=== PATIENT | female | born 1995 | race African-American/Black ===

== ENCOUNTER 2018-10-30 17:32 | Inpatient (IN) | payer OTHER ==
[~2018-10-30] VITALS: Ht 149.9 cm; Wt 81.9 kg
[2018-10-30 17:58] VITALS: BP 139/87
[2018-10-30] MEDS ORDERED: LR 1,000 ML IV SCH (18:58)
[2018-10-30] MEDS ORDERED: LACTATED RINGER'S 1000 ML IV ONE (19:00)
[2018-10-30] MEDS ORDERED: OXYTOCIN DRIP 30 UNITS in APPROPRIATE DILUENT 1 EA IV SCH (19:15)
[2018-10-30 19:48] LABS: HEMATOCRIT 30.8 % (36.0-47.0); HEMOGLOBIN 9.8 g/dl (12.0-15.5); MEAN CORPUSCULAR HEMOGLOBIN 26.9 pg (27.0-33.0); MEAN CORPUSCULAR HGB CONC 31.8 g/dl (32.0-36.5); MEAN CORPUSCULAR VOLUME 84.6 fl (80.0-96.0); PLATELET COUNT, AUTOMATED 170 10^3/uL (150-450); RED BLOOD COUNT 3.64 10^6/uL (4.00-5.40); WHITE BLOOD COUNT 6.3 10^3/uL (4.0-10.0)
[2018-10-30] MEDS ORDERED: FENTANYL 2MCG/ML ROPIVACAINE 0.2% IN 0.9% NACL 100ML IVBAG As Ordered ONE (21:25)
[2018-10-30] MEDS ORDERED: ONDANSETRON 4MG/2ML VIAL (J2405) As Ordered ONE (22:07)
[2018-10-30] MEDS ORDERED: LACTATED RINGER'S 1000 ML IV PRN (22:25)
[2018-10-30] MEDS ORDERED: EPIDURAL/PCA KEYS XX PRN (22:25)
[2018-10-30] MEDS ORDERED: NALOXONE INJ 0.4 MG/1 ML VIAL (J2310) IV PRN (22:25)
[2018-10-30] MEDS ORDERED: ePHEDrine SULFATE 25 MG/5 ML(5MG/ML) SYRINGE IV PRN (22:25)
[2018-10-30] MEDS ORDERED: REFRIGERATOR IV KEYS XX PRN (22:25)
[2018-10-30] MEDS ORDERED: diphenhydrAMINE INJ 50MG/ML VIAL (J1200) IV PRN (22:25)
[2018-10-30] MEDS ORDERED: EPIDURAL COMMENT XX SCH (22:25)
[2018-10-30] MEDS ORDERED: FENTANYL/ROPIVACAINE/NACL BAG 100 ML EPIDURAL SCH (22:25)
[2018-10-30] MEDS ORDERED: ONDANSETRON 4MG/2ML VIAL (J2405) IV PRN (22:25)
--- NOTE | 2018-10-30 22:44 | NUR ---
2230 pm post epidural 8-9 cm -2 station clear liquor category 1 strip adequate contractions
[2018-10-30 23:58] LABS: CORD GAS ABE A -1.6; CORD GAS HCO3 A 23.1 MEQ/L; CORD GAS O2 SAT A 81.9 %; CORD GAS PCO2 A 39.1 mmHg; CORD GAS PH A 7.389 UNITS; CORD GAS PO2 A 36.2 mmHg; CORD GAS SBC A 22.8 MEQ/L; CORD GAS TCO2 A 24.3 MEQ/L
[2018-10-31] LABS: CORD GAS ABE V -2.1; CORD GAS HCO3 V 22.3 MEQ/L; CORD GAS O2 SAT V 79.5 %; CORD GAS PH V 7.397 UNITS; CORD GAS SBC V 22.3 MEQ/L; CORD GAS TCO2 V 23.4 MEQ/L
[2018-10-31] MEDS ORDERED: ANUSOL HC CREAM 30GM TOP PRN (00:15)
[2018-10-31] MEDS ORDERED: MOM 30ML SUSPENSION UDC PO PRN (00:15)
[2018-10-31] MEDS ORDERED: RHOGAM 300 MCG (1500 IU) INJ (J2790) IM SCH (00:15)
[2018-10-31] MEDS ORDERED: DIBUCAINE 1% OINTMENT 30GM TOP PRN (00:15)
[2018-10-31] MEDS ORDERED: MEASLES,MUMPS,RUBELLA VACCINE INJ (MMR-II) (90707) SC SCH (00:15)
[2018-10-31] MEDS ORDERED: ACETAMINOPHEN 500 MG TAB PO PRN (00:15)
[2018-10-31] MEDS ORDERED: METHYLERGONOVINE MALEATE 0.2 MG TAB PO PRN (00:15)
[2018-10-31] MEDS ORDERED: DOCUSATE SODIUM 100 MG CAP PO PRN (00:15)
[2018-10-31] MEDS ORDERED: OXYTOCIN INJ 10 UNITS/ML VIAL (J2590) As Ordered ONE (02:28)
[2018-10-31 06:00] VITALS: BP 137/70
[2018-10-31] MEDS: PRENATAL VITAMINS CHEWABLE TABLET PO SCH (07:28)
[2018-10-31] MEDS: IBUPROFEN 800 MG TAB PO PRN ×2 (08:33→16:35)
--- NOTE | 2018-10-31 16:01 | HPE ---
DATE OF ADMISSION: 10/30/2018 This lady is a 22-year-old, 2, para 1, LMP 01/21/2018, EDC 10/28/2018 at 40 and 2 with a history of previous spontaneous rupture of membranes and no contractions. PAST HISTORY: In May 2015 spontaneous vaginal delivery 39 weeks male, 6 pounds 9 ounces. Risk factors BMI is 30.22 and elevated 1-hour GTT. 3-hour was normal. LABORATORY DATA: O+, HIV negative, hep negative, RPR negative, rubella immune. Pap showed LGSIL varicella immune. Urine was negative. Gonorrhea and chlamydia negative. 1-hour glucose was 127 at early onset at her 28-week GTT it was 147. 3-hour GTT 99/154/139/93. GBS was negative. On examination, no distress. Symphysis fundus height is 40, vertex OA, a loose 3 cm posterior ballotable with membranes intact. Moderate amount of mucus plug. No loss of fluid or vaginal discharge. Category one strip. Temperature is 98, blood pressure 139/87, respirations 18, pulse 90. Plan of management at the present time is the patient is has not had spontaneous rupture of membranes, or induction of labor in 5 days time booked. Precautions were given. The rest examination unremarkable. She is normocephalic, atraumatic. Neck: Full range of motion. Pupils equal and reactive to light. Distal pulses symmetric. No evidence of DVT, PE or superficial phlebitis. No wheezes or rhonchi. No CVA tenderness. Four quadrant bowel sounds appropriate. Nontender uterus. No rashes, lesions or pruritus. No arthralgia, myalgia. No complaint of joint pain. No complaint of cough, wheeze, shortness of breath or dyspnea on exertion. No bleeding. Neuro complete. No incontinency or frequency. No nausea, vomiting, diarrhea, constipation. Diabetic issues has resolved regarding her 3-hour GTT. She has had an abnormal Pap smear for which she will be evaluated . Medical and surgical unremarkable. Family noncontributory. She does not smoke, drink abuse drugs. She is to a soldier. No domestic violence. In summary we have a patient who does not have ruptured membranes. Discharged undelivered. Precautions were given. edited: 11/02/2018 1103 tkf
--- NOTE | 2018-10-31 16:01 | HPE ---
DATE OF ADMISSION: 10/30/2018 This lady is a 22-year-old 2, para 1, was seen for history of possible spontaneous rupture of membranes. We did rule that out; however, she had a non-reassuring heart tones and eventually, when it became a reassuring category one strip and mobilization, she finally had a spontaneous rupture of membranes. Speculum sterile examination pulled fluid in the cul-de-sac. Nitrazine positive and fern positive. She was a good 3 cm posterior, -3 station, about 70% effaced. Therefore, the patient was admitted with a history of spontaneous rupture of membranes, postdates at 40 and 2 weeks of gestation, elevated BMI at 30.22. She had an elevated 1-hour GTT, a 3-hour GTT, which is normal. Plan of management is to hydrate, augment with Pitocin as necessary. Epidural as needed. Anticipate vaginal delivery.
--- NOTE | 2018-10-31 17:19 | IPN ---
DATE: 10/31/2018 A 22-year-old 2, now para 2 admitted with spontaneous rupture of membranes, in labor at 40 and two weeks gestation, with epidural in place, delivered a live female , 7 pounds, 0 ounces, 3170 grams, scores of 8 and 9 at one and five minutes respectively. Terminal meconium was noted. Dr. Myers in attendance for resuscitation. Arterial pH 7.38, base excess -1.6, venous pH 7.29, base excess -2.1. Risk factors are her body mass index (BMI) is 30.22 and she had an elevated one-hour glucose tolerance test (GTT). On her first day, we discussed phlebitis, cystitis, mastitis, endometritis and cellulitis, diet, exercise, pain management, perineal, breast and wound care. The patient is interested in using the patch dispensed at her six-week checkup. VITAL SIGNS: Blood pressure 139/87, respirations 16, pulse 90, temperature 98.0. Her admitting hemoglobin was 9.8, hematocrit 30.8 and platelets were 170. The rest of the examination is unremarkable. Normocephalic, atraumatic. Neck: Full range of motion. Pupils equal and reactive to light. Distal pulses are symmetric. No evidence of deep vein thrombosis (DVT), pulmonary embolism (PE) or superficial phlebitis. Chest is clear bilaterally to bases. No wheezes or rhonchi. No rashes, lesions or pruritus. No arthralgia or myalgia. No complaint of joint pain. No cough or shortness of breath. No nausea, vomiting, diarrhea or constipation. No urinary incontinence. In summary, we have a term gestation, delivered a live female . Plan on breast-feeding and discharge tomorrow. She is planning on using a patch at her six-week checkup and medications will be dispensed at discharge.
--- NOTE | 2018-10-31 17:26 | DN ---
DATE: 10/31/2018 This lady is a 22-year-old 2 admitted with spontaneous rupture of membranes in active labor at 40 and two weeks of gestation. She had an epidural in place, had a spontaneous vaginal delivery of a live female weighing 7 pounds, 0 ounces, 3170 grams. scores of 8 and 9 at one and five minutes respectively. Terminal meconium at delivery. Arterial and venous pH were performed. The placenta delivered spontaneously thereafter, three-vessel cord, membranes and tissues intact. The uterus contracted well down on Pitocin. Examination of the sphincter, anterior, lateral and posterior mills were intact. The patient and baby tolerating the procedure well.
[2018-10-31 18:00] VITALS: BP 134/72
[2018-11-01 05:40] VITALS: BP 133/84
[2018-11-01 07:24] LABS: HEMATOCRIT 28.9 % (36.0-47.0); HEMOGLOBIN 8.9 g/dl (12.0-15.5); MEAN CORPUSCULAR HEMOGLOBIN 27.1 pg (27.0-33.0); MEAN CORPUSCULAR HGB CONC 30.8 g/dl (32.0-36.5); MEAN CORPUSCULAR VOLUME 87.8 fl (80.0-96.0); PLATELET COUNT, AUTOMATED 159 10^3/uL (150-450); RED BLOOD COUNT 3.29 10^6/uL (4.00-5.40); WHITE BLOOD COUNT 8.3 10^3/uL (4.0-10.0)
--- NOTE | 2018-11-01 07:31 | IPNPDOC ---
Text Note Date of Service The patient was seen on 11/01/18. NOTE PPD1 States feeling well, pain controlled with prescribed meds. Baby bonding and feeding well. No heavy VB. Lochia slowing. Ambulatory. Tolerating PO without issues. Voiding spont. No CP/LP/SOB. VSSAF NAD A&O LE no C/C/E Ut at U-1, firm a/p: Doing well. Cont routine care. D/C today. Sessions Kyleigh MUNOZ, I+O Kyleigh CANTU I+O Laboratory Tests 11/01/18 07:02 Red Blood Count 3.29 L, Mean Corpuscular Volume 87.8, Mean Corpuscular Hemoglobin 27.1, Mean Corpuscular Hemoglobin Concent 30.8 L, Red Cell Distribution Width 14.5 Vital Signs Date Time Temp Pulse Resp B/P (MAP) Pulse Ox O2 Delivery O2 Flow Rate FiO2 11/01/18 05:40 98.5 80 18 133/84 (100) 10/31/18 18:00 94 I&O- Last 24 Hours up to 6 AM 11/01/18 06:00 Output Total 350 ml Balance -350 ml SESSIONS,PETER Krishna MD Nov 01, 2018 07:31
--- NOTE | 2018-11-01 07:34 | DS.PDOC ---
Discharge Summary General Date of Admission Oct 30, 2018 at 19:00 Date of Discharge [id number] Discharge Summary ADMITTING DIAGNOSES: Active labor DISCHARGE DIAGNOSES: Same, HOSPITAL COURSE: Admitted and delivery uncomplicated, . course uncomplicated. DISCHARGE MEDICATIONS: Motrin, Lanolin, Tylenol DISCHARGE INSTRUCTIONS: Nothing in the vagina for 6 weeks. F/U in OBGYN clinic in 6-8 weeks. Sessions Vital Signs/I&Os Vital Signs Date Time Temp Pulse Resp B/P (MAP) Pulse Ox O2 Delivery O2 Flow Rate FiO2 11/01/18 05:40 98.5 80 18 133/84 (100) 10/31/18 18:00 94 I&O- Last 24 Hours up to 6 AM 11/01/18 06:00 Output Total 350 ml Balance -350 ml Laboratory Data Labs 24H Laboratory Tests 2 11/01/18 07:02: Nucleated Red Blood Cells % (auto) 0.0 CBC/BMP Laboratory Tests 11/01/18 07:02 Red Blood Count 3.29 L, Mean Corpuscular Volume 87.8, Mean Corpuscular Hemoglobin 27.1, Mean Corpuscular Hemoglobin Concent 30.8 L, Red Cell Distribution Width 14.5 Discharge Medications No Active Prescriptions or Reported Meds Allergies Coded Allergies: No Known Allergies (Unverified , 10/30/18) SESSIONSPETER MD Nov 01, 2018 07:34
[2018-11-01] MEDS: PRENATAL VITAMINS CHEWABLE TABLET PO SCH (08:09)
[2018-11-01] MEDS ORDERED: COLA100C5 PO (10:18)
[2018-11-01] MEDS ORDERED: MAPA500T2 PO (10:18)
[2018-11-01] MEDS ORDERED: MOM30SS PO (10:18)
[2018-11-01] MEDS ORDERED: IBUP-1114 PO (10:18)
[2018-11-01] MEDS ORDERED: PREN1TAB11 PO (10:18)
== END 2018-11-01 10:50 | disposition home or self-care (01) | DRG 807 ==
LOC: M LDO 17:32 → M LDI 19:00 → M OBS 10-31 03:10
PROVIDERS: ADMIT Obstetrics & Gynecology; ATTEND Obstetrics & Gynecology
PROC: 10E0XZZ Delivery of Products of Conception, External Approach (ICD-10-PCS; principal; 2018-10-31)
DX: O48.0 Post-term pregnancy (principal); Z37.0 Single live birth; Z3A.40 40 weeks gestation of pregnancy

== ENCOUNTER 2019-01-10 19:03 | Emergency (ER) | payer OTHER ==
[~2019-01-10] VITALS: Ht 149.9 cm; Wt 70.5 kg
[2019-01-10 19:03] VITALS: BP 145/87
[~2019-01-10 19:03] MED LIST: COLA100C5 PO; IBUP-1114 PO; MAPA500T2 PO; MOM30SS PO; PREN1TAB11 PO
[2019-01-10] MEDS ORDERED: ZOLO25TA PO (19:07)
== END 2019-01-10 20:06 | disposition left against medical advice (07) ==
LOC: M ED 19:03
DX: Z53.29 Procedure and treatment not carried out because of patient's decision for other reasons (principal)